=== PATIENT | male | born 1940 | race Caucasian/White ===

== ENCOUNTER 2018-02-14 11:07 | Outpatient (REF) | payer MEDICARE, OTHER, SELFPAY ==
[2018-02-14 20:12] LABS: Anion Gap 7.8 mmol/L (3-11); BUN 24 mg/dL (7-18); CO2 27.2 mmol/L (21.0-32.0); CREATININE 1.19 mg/dL (0.70-1.30); Chloride 108 mmol/L (98-107); Glucose 106 mg/dL (70-100); Potassium 4.4 mmol/L (3.5-5.1); Sodium 143 mmol/L (136-145)
[2018-02-15 12:53] LABS: Calcium 8.6 mg/dL (8.5-10.1)
== END 2018-02-14 11:27 ==
LOC: NCHCN 11:07
PROVIDERS: PCP Physician Assistant Medical; Visit Provider Physician Assistant Medical
DX: I10 Essential (primary) hypertension (principal)
CPT/HCPCS: 80048

== ENCOUNTER 2019-02-15 09:23 | Outpatient (REF) | payer MEDICARE, OTHER, SELFPAY ==
[2019-02-15 19:00] LABS: Anion Gap 7.9 mmol/L (3-11); BUN 17 mg/dL (7-18); CO2 28.1 mmol/L (21.0-32.0); CREATININE 1.37 mg/dL (0.70-1.30); Calcium 8.8 mg/dL (8.5-10.1); Chloride 106 mmol/L (98-107); Estimated GFR 50.52 (mL/min/1.73m2); Glucose 108 mg/dL (70-100); Potassium 4.5 mmol/L (3.5-5.1); Sodium 142 mmol/L (136-145)
== END 2019-02-15 09:43 ==
LOC: NCHCN 09:23
PROVIDERS: PCP Physician Assistant Medical; Visit Provider Nurse Practitioner Family
DX: I10 Essential (primary) hypertension (principal)
CPT/HCPCS: 80048

== ENCOUNTER 2021-08-25 16:54 | Outpatient (REF) | payer MEDICARE, OTHER, SELFPAY ==
[2021-08-25 20:07] LABS: Anion Gap 10.7 mmol/L (3-11); BUN 25 mg/dL (7-18); CO2 24.3 mmol/L (21.0-32.0); CREATININE 1.2 mg/dL (0.70-1.30); Calcium 8.7 mg/dL (8.5-10.1); Chloride 107 mmol/L (98-107); Estimated GFR 58.56 (mL/min/1.73m2); Glucose 90 mg/dL (74-106); Potassium 4.4 mmol/L (3.5-5.1); Sodium 142 mmol/L (136-145)
== END 2021-08-25 16:55 | disposition home or self-care (01) ==
LOC: NCHCN 16:54
PROVIDERS: PCP Physician Assistant Medical; Visit Provider Physician Assistant
DX: I10 Essential (primary) hypertension (principal)
CPT/HCPCS: 80048

== ENCOUNTER 2023-09-06 12:55 | Outpatient (REF) | payer MEDICARE, MEDICAID, SELFPAY ==
[2023-09-06 19:37] LABS: ALT 19 U/L (16-63); AST 22 U/L (15-37); Albumin 3.4 g/dL (3.4-5.0); Alkaline Phosphatase 63 U/L (46-116); Anion Gap 9.4 mmol/L (3-11); BUN 23 mg/dL (7-18); Bilirubin, Total 0.4 mg/dL (0.2-1.0); CO2 25.6 mmol/L (21.0-32.0); CREATININE 1.4 mg/dL (0.70-1.30); Calcium 8.9 mg/dL (8.5-10.1); Chloride 109 mmol/L (98-107); Estimated GFR 50.81 (mL/min/1.73m2); Glucose 112 mg/dL (74-106); LDL CHOLESTEROL 64 mg/dL (<100); Sodium 144 mmol/L (136-145); Total Protein 6.7 g/dL (6.4-8.2)
== END 2023-09-06 12:56 | disposition home or self-care (01) ==
LOC: NCHCN 12:55
PROVIDERS: PCP Physician Assistant Medical; Visit Provider Physician Assistant
DX: I10 Essential (primary) hypertension (principal)
CPT/HCPCS: 80053; 83721

== ENCOUNTER 2024-08-12 11:14 | Day surgery (SDC) | payer MEDICARE, MEDICAID, SELFPAY ==
[2024-08-12 11:22] VITALS: BP 196/95; PULSE 72; RESP 20; TEMP 36.8; O2SAT 99
--- NOTE | 2024-08-12 11:37 | W.ED.GENAD ---
Discharge Plan Disposition Patient Disposition: Admit to [facility] Condition: Stable Discharge Details Chief Complaint: ThroatFB Clinical Impression: Food impaction of esophagus Primary Care Provider: Stephan Matthews V ED Provider: Ba Ochoa Home Meds and New Rx's Prescriptions: No Action lisinopril 20 mg tablet 20 mg PO DAILY HPI General Mode of arrival: ambulatory. Date/Time Provider Initiated Documentation: 08/12/24 11:18. Limitations to Documentation: no limitations. Information obtained by: patient. History of Present Illness 83 year old M presents to the emergency department with the chief complaint of feels pork stuck in esophagus, described as moderate, Patient reports no radiation. and it has been constant. No relieving factors improve symptom(s), No exacerbating factors reported . Patient notes denies chest pain and shortness of breath. Patient did receive the following treatments prior to arrival, none Related Data Home Medications ?Medication ?Instructions ?Recorded ?Confirmed lisinopril 20 mg tablet 20 mg PO DAILY 08/12/24 08/12/24 Allergies Allergy/AdvReac Type Severity Reaction Status Date / Time ibuprofen Allergy Intermediate Hives Verified 08/12/24 11:37 General Stated Complaint: ThroatFB KARLEY: 4 Review of Systems All systems reviewed & are unremarkable except as noted in HPI and below Constitutional Constitutional: Denies chills, Denies fever(s) and Denies weakness Cardiovascular Cardiovascular: Denies chest pain and Denies dyspnea Respiratory Respiratory: Denies cough and Denies dyspnea Gastrointestinal Gastrointestinal: Denies abdominal pain and Denies vomiting Neurologic Neurologic: Denies weakness Psychiatric Psychiatric: Denies depression Exam Const General: no acute distress Orientation: alert HENMT Head: normal to inspection Ears: external ears normal General nose exam: external nose normal Mouth: moist mucous membranes Eyes General: appearance normal, both eyes and all related structures Neck Neck: normal visual inspection Resp Effort & Inspection: normal respiratory effort and able to speak in complete sentences Cardio Rate: regular rate GI Palpation: soft and nontender Skin General skin exam: no rashes or lesions noted Neuro General: patient alert and patient oriented x3 Extrem General: normal to inspection Psych Mental Status: mental status grossly normal Course Vital Signs Vital signs: Vital Signs Temperature 36.8 C 08/12/24 11:22 Pulse 72 08/12/24 11:22 Respiratory Rate 20 08/12/24 11:22 Blood Pressure 196/95 H 08/12/24 11:22 Pulse Oximetry 99 08/12/24 11:22 Temperature 36.8 C 08/12/24 11:22 Pulse 72 08/12/24 11:22 Respiratory Rate 20 08/12/24 11:22 Respiratory Effort Normal 08/12/24 11:31 Blood Pressure 196/95 H 08/12/24 11:22 Blood Pressure Position Sitting 08/12/24 11:22 Pulse Oximetry 99 08/12/24 11:22 Oxygen Delivery Method Room Air 08/12/24 11:22 Oxygen Flow Rate 0 08/12/24 11:22 Medical Decision Making 83-year-old male who says he has had prior food impactions last treated in June last year at [facility] with endoscopy comes in with complaints of feeling as though he has food stuck in his esophagus. He says he had pork last night and after swallowing he felt like something is stuck in his or esophagus. He states that he has not been able to drink any fluids or eat anything because it comes right back up. He denies any vomiting states that just slowly comes back up the esophagus. He denies any chest pain or difficulty breathing. He is well appearing on exam, no stridor or drooling. He is able to swallow water but shortly after he starts to hiccup and the water comes back up. I suspect he does have a food impaction, I will trial effervescent tablets and glucagon and check basic labs and reassess. Patient still unable to swallow liquids so I consulted general surgery Dr. Chaudhary who will plan to take the patient for endoscopy. Differential Diagnosis Differential Diagnosis: Food impaction, esophagitis Lab Data Lab results reviewed: Yes I reviewed the patient's lab results. Quality:[facility] Health Related Social Needs: No Data to Display [facility] All Active Problems (Updated 08/12/24 @ 12:21 by Ba Ochoa MD) Food impaction of esophagus (Acute) Social History Smoking risk assessment performed?: No
[2024-08-12] MEDS: Water,Injection,Sterile 10 ML VIAL (11:55)
[2024-08-12] MEDS: Normal Saline Flush 10 ML SYR IVP (11:55)
[2024-08-12] MEDS: Glucagon 1 MG VIAL IVP (11:56)
[2024-08-12 11:57] LABS: Abs Immature Grans 0.01 10^3/uL (0.0-0.06); Absolute Basophil Count 0.06 10^3/uL (0.0-0.2); Absolute Eosinophil Count 0.24 10^3/uL (0.0-0.7); Absolute Lymphocyte Count 1.46 10^3/uL (1.2-3.4); Absolute Monocyte Count 0.49 10^3/uL (0.1-0.8); Absolute Neutrophil Count 3.25 10^3/uL (1.2-6.7); Basophils % 1.1 %; Eosinophils % 4.4 %; HCT 42.3 % (40.0-50.0); HGB 13.9 g/dL (13.5-17.5); Immature Grans % 0.2 %; Lymphocytes % 26.5 %; MCH 29.5 pg (27.0-33.0); MCHC 32.9 % (32.0-36.0); MCV 90 fL (80-95); MPV 9.6 fL (8.0-11.0); Monocytes % 8.9 %; Neutrophils % 58.9 %; Platelet Count 230 10^3/uL (130-400); RBC 4.71 10^6/uL (4.36-5.78); RDW 15.2 % (11.8-14.1); RDW-SD 50.4 fL; WBC 5.51 10^3/uL (4.4-10.8)
[2024-08-12] MEDS: Simethicone/Sod Bicarb/Cit Ac, 4 gram PACKET 1 PACKET PO (12:01)
[2024-08-12 12:10] LABS: ALT 23 U/L (16-63); AST 25 U/L (15-37); Albumin 3.8 g/dL (3.4-5.0); Alkaline Phosphatase 59 U/L (46-116); Anion Gap 8.6 mmol/L (3-11); BUN 18 mg/dL (7-18); Bilirubin, Total 0.9 mg/dL (0.2-1.0); CO2 28.4 mmol/L (21.0-32.0); CREATININE 1.2 mg/dL (0.70-1.30); Calcium 9.2 mg/dL (8.5-10.1); Chloride 106 mmol/L (98-107); Estimated GFR 60.75 (mL/min/1.73m2); Glucose 115 mg/dL (74-106); Potassium 3.9 mmol/L (3.5-5.1); Sodium 143 mmol/L (136-145); Total Protein 7.6 g/dL (6.4-8.2)
[2024-08-12 12:45] VITALS: BP 179/92; PULSE 70; RESP 20; O2SAT 99
--- NOTE | 2024-08-12 13:14 | ANES.PREOP_ITS ---
General Info Date of Service Date Performed: 08/12/24 Height: 5 ft 6 in Weight: 61.3 kg Body Mass Index (BMI): 21.8 Surgical Procedure: Operation Date: 08/12/24 13:30 Proposed Procedure Side Surgeon p Gastroscopy/Removal Foreign Body Norman RIDDLE MD Pre-Op Diagnosis Post-Op Diagnosis FOREIGN BODY ESOPHAGUS Meds Allergies and Home Medications Allergies Allergy/AdvReac Type Severity Reaction Status Date / Time ibuprofen Allergy Intermediate Hives Verified 08/12/24 11:37 Home Medication ?Medication ?Instructions ?Recorded lisinopril 20 mg tablet 20 mg PO DAILY 08/12/24 Current Visit Medications: Current Medications Generic Name Dose Route Start Last Admin Trade Name Freq PRN Reason Stop Dose Admin IV Miscellaneous Supplies 1 each 08/12/24 11:45 Iv Access IV DIRECTED RAJAT Sodium Chloride 0 ml 08/12/24 11:32 08/12/24 11:55 Normal Saline Flush 10 Ml Syr IVP 10 ml PRN PRN Administration Sodium Chloride 0 ml 08/12/24 20:00 Normal Saline Flush 10 Ml Syr IVP BID RAJAT Sodium Chloride 0 ml 08/12/24 11:32 Normal Saline 10 Ml Vial IJ DIRECTED PRN PFSH Active Problems Active Problems: Problem Status Onset Code Food impaction of esophagus Acute T18.128A, [id number] Tobacco Smoking/Tobacco Use Status: Never Alcohol Alcohol Intake: never Substance Use Substance use: Never Vital Signs and Lab Results Vital Signs Most Recent Vital Signs in EMR: Most Recent Vital Signs Temp Pulse Resp BP Pulse Ox 36.8 C 70 20 179/92 H 99 08/12/24 11:22 08/12/24 12:45 08/12/24 12:45 08/12/24 12:45 08/12/24 12:45 Lab Results 08/12/24 11:50 08/12/24 11:50 Blood Type / Crossmatch: 2 No Data to Display Complete Blood Count: 2 White Blood Count 5.51 10^3/uL (4.4-10.8) 08/12/24 11:50 Red Blood Count 4.71 10^6/uL (4.36-5.78) 08/12/24 11:50 Hemoglobin 13.9 g/dL (13.5-17.5) 08/12/24 11:50 Hematocrit 42.3 % (40.0-50.0) 08/12/24 11:50 Platelet Count 230 10^3/uL (130-400) 08/12/24 11:50 Complete Metabolic Panel: 2 Sodium 143 mmol/L (136-145) 08/12/24 11:50 Potassium 3.9 mmol/L (3.5-5.1) 08/12/24 11:50 Chloride 106 mmol/L (98-107) 08/12/24 11:50 Carbon Dioxide 28.4 mmol/L (21.0-32.0) 08/12/24 11:50 BUN 18 mg/dL (7-18) 08/12/24 11:50 Creatinine 1.2 mg/dL (0.70-1.30) 08/12/24 11:50 Est GFR (CKD-EPI 2020) 60.75 (mL/min/1.73m2) 08/12/24 11:50 Calcium 9.2 mg/dL (8.5-10.1) 08/12/24 11:50 Albumin 3.8 g/dL (3.4-5.0) 08/12/24 11:50 Glucose 115 mg/dL (74-106) H 08/12/24 11:50 Liver Function Panel: 2 Alanine Aminotransferase (ALT/SGPT) 23 U/L (16-63) 08/12/24 11: 50 Aspartate Amino Transf (AST/SGOT) 25 U/L (15-37) 08/12/24 11:50 Coagulation Panel: 2 No Data to Display Cardiac Panel: 2 No Data to Display Arterial Blood Gas: 2 No Data to Display Venous Blood Gas: 2 No Data to Display Pancreas Panel: 2 No Data to Display Thyroid Panel: 2 No Data to Display Infectious Disease: 2 No Data to Display Blood Cultures: 2 No Data to Display Toxicology Panel: 2 No Data to Display Anesthesia Assessment and Plan Anesthesia History Personal History: No History of General Anesthesia Family History: No Family History of Anesthesia Complications Exercise Tolerance Exercise Tolerance: Metabolic Equivalents>4 Pertinent Negatives Pertinent Negatives: No Symptoms of GERD, No Major Cardiovascular Symptoms or Complaints and No Major Pulmonary Symptoms or Complaints Cardiac & Pulmonary Exam Cardiac Exam: Normal S1/S2 Heart Sounds Pulmonary Exam: Clear Bilateral Breath Sounds Implantable Cardiac Device Does patient have a Pacemaker or an ICD?: No Airway Exam Known Difficult Airway: No Mallampati Class: 2 Mouth Opening: Normal (> 3cm) Thyromental Distance: Greater than 3 cm Facial Hair: Full Duran Neck Range of Motion: Full ROM Neck Circumference: Normal Teeth Condition: Normal Dentition (Some missing teeth) ASA Classification ASA Score: ASA 2 Emergency Case?: No NPO Status NPO Status: NPO Clears >2 hours, Solids >8 hours Anesthesia Plan Resuscitation Status: Full Code Anesthesia Technique: General Anesthesia Airway Planned: Natural Airway Monitors Used: Standard Monitors
[2024-08-12 13:15] VITALS: BMI 21.8
--- NOTE | 2024-08-12 13:32 | W.PM.HP.N ---
Date of service: 08/12/24 Time of Service: 13:32 Assessment and Plan Assessment and plan (1) Food impaction of esophagus: Status: Acute Assessment and plan: 83-year-old male who appears to have a piece of pork stuck in his distal esophagus. We will go ahead and proceed to the operating room for upper endoscopy and removal of foreign body. Procedure was discussed in detail with the patient and his and their daughter. We talked about the risks of bleeding from biopsy sites and perforation of the esophagus. His daughter asked about dilation. I explained that if there was a fair amount of inflammation given that the food has been there for almost 24 hours, that I would not dilate at this time. If the tissue looks healthy, I may be able to do so. They expressed understanding. Will go ahead and proceed with upper endoscopy right away. Thank you for the consultation. History of Present Illness Narrative: Patient is an 83-year-old male who presents to the emergency room. He reports that he had a pork chop for dinner last night. Ever since he has had difficulty swallowing. He was able to retch after dinner and bring up some pieces but has not been able to get anything much to go through since then. Per secondary report he did drink some coffee this morning but in the emergency room he was given some trials of liquids and ended up spitting most of it back up. He had glucagon without any success as well. Patient reports that he had a similar problem over a year ago. At that time he went to [facility]. He ended up going to the endoscopy room for upper endoscopy and removal of the piece of chicken. His and daughter are with him today. His daughter thinks that they also did dilation at the time. He reports that he has not had any issues since then until the last day. He does report some hiccuping this past week that was a bit unusual for him. Otherwise, he is quite healthy. He only takes 1 blood pressure medication. He and his seem to live independently. He he has no issues with appetite or eating normally. Review of Systems Narrative: Per HPI PFSH All Active Problems (Updated 08/12/24 @ 13:38 by Norman Chaudhary GAMD FABIAN) Food impaction of esophagus (Acute) Social History Smoking/Tobacco Use Status: Never Smoking risk assessment performed?: Yes Alcohol Intake: never Drug use: Never Meds Allergies and Home Medications Allergies Allergy/AdvReac Type Severity Reaction Status Date / Time ibuprofen Allergy Intermediate Hives Verified 08/12/24 11:37 Home Medications ?Medication ?Instructions ?Recorded ?Confirmed ?Type lisinopril 20 mg tablet 20 mg PO DAILY 08/12/24 08/12/24 History Exam Narrative Exam Narrative: General?elderly male lying on the hospital stretcher with head of bed elevated, no apparent distress, appears stated age, well-kept HEENT?normocephalic, atraumatic. Sclera anicteric.. Mucous membranes moist. Dentition good. Neck?supple, no masses Respiratory?unlabored, no use of accessory muscles, speaks in full sentences Abdomen?soft, nontender, nondistended Extremities?moves all extremities, no gross edema Neuro-? grossly intact Psych?alert and oriented x 3, makes good eye contact, answers questions appropriately Results Labs 08/12/24 11:50 08/12/24 11:50 Labs: Laboratory Results - last 24 hr 08/12/24 11:50 WBC 5.51 RBC 4.71 Hgb 13.9 Hct 42.3 MCV 90 MCH 29.5 MCHC 32.9 RDW 15.2 H Plt Count 230 MPV 9.6 Immature Gran % 0.2 Neutrophils % 58.9 Lymphocytes % 26.5 Monocytes % 8.9 Eosinophils % 4.4 Basophils % 1.1 Nucleated RBC % 0.0 Absolute Neutrophils 3.25 Absolute Lymphocytes 1.46 Absolute Monocytes 0.49 Absolute Eosinophils 0.24 Absolute Basophils 0.06 Sodium 143 Potassium 3.9 Chloride 106 Carbon Dioxide 28.4 Anion Gap 8.6 BUN 18 Creatinine 1.2 Est GFR (CKD-EPI 2020) 60.75 Glucose 115 H Calcium 9.2 Total Bilirubin 0.9 AST 25 ALT 23 Alkaline Phosphatase 59 Total Protein 7.6 Albumin 3.8 Last Vital Signs Temp 36.8 C 08/12/24 11:22 Pulse 70 08/12/24 12:45 Resp 20 08/12/24 12:45 BP 179/92 H 08/12/24 12:45 Pulse Ox 99 08/12/24 12:45 Time Spent Time spent with Patient: <40 minutes Time was spent: obtaining and/or reviewing separately otained hiistory, referring, communicating with other health resident care provider and counseling the patient
[2024-08-12] MEDS: Lactated Ringers 1,000 ML 30 ML IV (13:36)
[2024-08-12 14:25] VITALS: BP 142/89; PULSE 82; RESP 16; TEMP 36.6; O2SAT 97
--- NOTE | 2024-08-12 14:27 | W.ANESPOSTOP ---
Postoperative Evaluation Date, Time and Location Date Performed: 08/12/24 Time Performed: 14:27 Patient Location: Med/Surg Vital Signs Most Recent Imported Vital Signs: Most Recent Vital Signs Temp Pulse Resp BP Pulse Ox 36.8 C 70 20 179/92 H 99 08/12/24 11:22 08/12/24 12:45 08/12/24 12:45 08/12/24 12:45 08/12/24 12:45 Most Recent Manually Entered Vital Signs: Adult Blood Pressure: 142/89 Heart Rate: 82 Respirations: 16 Oxygen Saturation (%): 97 Temperature (C): 36.6 C Pain Score (0-10 Scale): 0 Assessment Mental Status: Arousable with meaningful communication Airway and Respiratory Function: Patent airway with normal (patient baseline) respiratory exam Cardiovascular Function: Hemodynamically Stable Hydration Status: Adequately Hydrated Nausea & Vomiting: No Nausea or Vomiting Pain: Pt. Denies Any Pain Peripheral Nerve Block: Patient did not receive a nerve block
[2024-08-12 14:28] VITALS: BP 142/89; PULSE 82; RESP 16; TEMPC 36.6; O2SAT 97
--- NOTE | 2024-08-12 14:38 | ROE_ITS ---
Operative Note Operative Note PRE-OP DIAGNOSIS: Esophageal foreign body POST-OP DIAGNOSIS: same PROCEDURE: EGD with food disimpaction from distal esophagus. SURGEON: Norman RIDDLE ANESTHESIA TYPE: General LMA/ETT Refer to Anesthesia Record PATHOLOGY: none sent COMPLICATIONS: None Patient was transported to: PACU Patient's condition: stable Findings: Column of partially digested food in the distal esophagus that was able to be pushed through to the stomach, slight stricturing at Z-line, small hiatal hernia. Procedure Description: After obtaining informed consent, patient was brought to the operating room. He was placed under general anesthesia with endotracheal intubation. Timeout was performed. He remained supine on the stretcher. Bite-block was inserted. The upper endoscope was advanced through the oropharynx and into the esophagus without difficulty. And about the distal third of the esophagus I came to multiple pieces of macerated food and a lot of saliva. I was able to gently pass the scope beyond the food particles and into the stomach. I backed up into the esophagus and slowly pushed the food stuff through to the stomach without any significant resistance. Once I had the foodstuff cleared I was able to see a slight stricturing at the Z-line although the scope did pass fairly readily through the area. There was a couple of areas of ulceration and irritation from the impacted food. I went ahead advanced all the way down to the second portion of the duodenum. The duodenum and duodenal bulb had a normal appearance. I withdrew into the stomach. The pylorus had a normal appearance. The mucosa of the antrum and the body of the stomach also had a normal appearance. I did retroflex. I took pictures of the foodstuff in the cardia. On retroflexion I did appreciate a sliding hiatal hernia with about a 0.5 to 1 cm opening adjacent to the scope. I decompressed the stomach and withdrew into the esophagus. Again I could see the slight partial ring just proximal to the Z-line. The Z- line was about 1 cm above the diaphragmatic hiatus. At this point I withdrew the scope entirely. Patient tolerated well. He was extubated without complication. He went to recovery in stable condition. Disposition: Patient will be discharged home later today. I have recommended repeat upper endoscopy in about a month so that biopsies can be taken and dilat ion can be performed. I also have written him a prescription for daily PPI for the next 3 months. Date of Procedure: 08/12/24
--- NOTE | 2024-08-12 14:38 | W.PC.ACHO ---
Registration Status: Primary Language: Preferred Language: ED Information & Data Chief Complaint ThroatFB 08/12/24 11:42 Triage Note PT reports difficulty 08/12/24 11:22 swallowing large amounts of liquids and solid foods. PT reports that he has needed to be treated for this issue before and that this episode started last night. Most Recent Vital Signs Temperature 36.6 C 08/12/24 14:25 Pulse 82 08/12/24 14:25 Pulse Rhythm Regular 08/12/24 12:45 Pulse Strength Normal 08/12/24 12:45 Respiratory Rate 16 08/12/24 14:25 Respiratory Effort Normal 08/12/24 12:45 Respiratory Depth Normal 08/12/24 12:45 Respiratory Pattern Normal 08/12/24 12:45 Blood Pressure 142/89 H 08/12/24 14:25 Blood Pressure Mean 121 08/12/24 12:45 Blood Pressure Position Sitting 08/12/24 12:45 Pulse Oximetry 97 08/12/24 14:25 Oxygen Delivery Method Room Air 08/12/24 14:25 Oxygen Flow Rate 0 08/12/24 12:45 Pain Level 0 08/12/24 14:25 Allergies ibuprofen Allergy (Intermediate, Verified 08/12/24 11:37) Hives Active Medications Generic Name Dose Route Start Last Admin Trade Name Freq PRN Reason Stop Dose Admin Ringer's Solution 1,000 mls @ 30 mls/hr 08/12/24 14:15 08/12/24 14:04 IV 09/11/24 14:14 30 mls/hr INFUSION RAJAT Infusion Sodium Chloride 0 ml 08/12/24 11:32 08/12/24 11:55 Normal Saline Flush 10 Ml Syr IVP 10 ml PRN PRN Administration IV IV Catheter Type [Left Saline Lock Antecubital] IV Catheter Gauge [Left 18 Antecubital] Diagnostics 08/12/24 Range/Units 11:50 WBC 5.51 (4.4-10.8) 10^3/uL RBC 4.71 (4.36-5.78) 10^6/uL Hgb 13.9 (13.5-17.5) g/dL Hct 42.3 (40.0-50.0) % MCV 90 (80-95) fL MCH 29.5 (27.0-33.0) pg MCHC 32.9 (32.0-36.0) % RDW 15.2 H (11.8-14.1) % Plt Count 230 (130-400) 10^3/uL MPV 9.6 (8.0-11.0) fL Immature Gran % 0.2 % Neutrophils % 58.9 % Lymphocytes % 26.5 % Monocytes % 8.9 % Eosinophils % 4.4 % Basophils % 1.1 % Nucleated RBC % 0.0 (0.0-0.3) % Absolute Neutrophils 3.25 (1.2-6.7) 10^3/uL Absolute Lymphocytes 1.46 (1.2-3.4) 10^3/uL Absolute Monocytes 0.49 (0.1-0.8) 10^3/uL Absolute Eosinophils 0.24 (0.0-0.7) 10^3/uL Absolute Basophils 0.06 (0.0-0.2) 10^3/uL Sodium 143 (136-145) mmol/L Potassium 3.9 (3.5-5.1) mmol/L Chloride 106 (98-107) mmol/L Carbon Dioxide 28.4 (21.0-32.0) mmol/L Anion Gap 8.6 (3-11) mmol/L BUN 18 (7-18) mg/dL Creatinine 1.2 (0.70-1.30) mg/dL Est GFR (CKD-EPI 2020) 60.75 (mL/min/1.73m2) Glucose 115 H (74-106) mg/dL Calcium 9.2 (8.5-10.1) mg/dL Total Bilirubin 0.9 (0.2-1.0) mg/dL AST 25 (15-37) U/L ALT 23 (16-63) U/L Alkaline Phosphatase 59 (46-116) U/L Total Protein 7.6 (6.4-8.2) g/dL Albumin 3.8 (3.4-5.0) g/dL Intake and Output - 24 Hour Total 08/12/24 11:14 thru 08/12/24 14:04 Intake Total 610 Balance 610 Weight 61.3 kg Intake: IV 610 Falls Risk Assessment History of Falls No History 08/12/24 11:27 Contributing Factors No Factors 08/12/24 11:27 Ambulatory Aids Independent 08/12/24 11:27 Tubes/Lines None 08/12/24 11:27 Gait Evaluation No gait disturbance 08/12/24 11:27 Cognition No cognitive impairment 08/12/24 11:27 Fall Total Score 0 08/12/24 11:27 Level of Risk Standard/Low Risk 08/12/24 11:27 Problems Food impaction of esophagus (Acute) v v v v v v v v v Sending and/or Receiving Nurses: Please use comment section below to note any information pertinent to the patient hand-off not included above. Information / Comments: Report received from: Report received from TONEY Guzman. SBAR report, all questions answered.
[2024-08-12 14:49] VITALS: BP 144/79; PULSE 63; RESP 16; TEMP 36.5; O2SAT 97
== END 2024-08-12 15:19 | disposition home or self-care (01) ==
LOC: ER 12:26 → SUR 13:15 → MS 14:35
PROVIDERS: Emergency Provider Emergency Medicine; PCP Physician Assistant Medical; Visit Provider Surgery
PROC: 0DC68ZZ Extirpation of Matter from Stomach, Via Natural or Artificial Opening Endoscopic (ICD-10-PCS; CPT 43247; principal; 2024-08-12 13:30)
DX: T18.128A Food in esophagus causing other injury, initial encounter (principal); W44.F3XA Food entering into or through a natural orifice, initial encounter
CPT/HCPCS: 43247; 80053; 85025; J0330; J1100; J1610; J1805; J2250; J2405; J2704; J3010